=== PATIENT | female | born 1950 | race Caucasian/White ===

== ENCOUNTER → 2019-07-20 | Outpatient (REF) | payer MEDICARE ==
[2019-07-20 13:46] LABS: BASO % 0.3 % (0.0-1.0); EOS # 0.2 10^3/uL (0.0-0.50); EOS % 2.3 % (0.0-3.0); HEMATOCRIT 43.2 % (36.0-47.0); HEMOGLOBIN 14.2 g/dl (12.0-15.5); LYMPH # 1.4 10^3/uL (1.5-4.5); LYMPH % 21.7 % (24.0-44.0); MEAN CORPUSCULAR HEMOGLOBIN 29.3 pg (27.0-33.0); MEAN CORPUSCULAR HGB CONC 32.9 g/dl (32.0-36.5); MEAN CORPUSCULAR VOLUME 89.1 fl (80.0-96.0); MONO # 0.5 10^3/uL (0.0-0.8); NEUTROPHILS # 4.5 10^3/uL (1.8-7.7); NEUTROPHILS % 68.4 % (36.0-66.0); PLATELET COUNT, AUTOMATED 246 10^3/uL (150-450); RED BLOOD COUNT 4.85 10^6/uL (4.00-5.40); WHITE BLOOD COUNT 6.5 10^3/uL (4.0-10.0)
[2019-07-20 14:57] LABS: ALBUMIN 3.6 GM/DL (3.2-5.2); ALT/SGPT 28 U/L (12-78); BILIRUBIN,TOTAL 0.3 MG/DL (0.2-1.0); BLOOD UREA NITROGEN 16 MG/DL (7-18); CALCIUM LEVEL 9.2 MG/DL (8.8-10.2); CARBON DIOXIDE LEVEL 25 MEQ/L (21-32); CHLORIDE LEVEL 105 MEQ/L (98-107); CHOLESTEROL LEVEL 216 MG/DL (<200); CHOLESTEROL RISK RATIO 5.268 (<5); CREATININE FOR GFR 0.91 MG/DL (0.55-1.30); GLOMERULAR FILTRATION RATE > 60.0 (>45); GLUCOSE, FASTING 188 MG/DL (70-100); HDL CHOLESTEROL 41 MG/DL (>40); LDL CHOLESTEROL 127 MG/DL (<100); NON-HDL-C 175 MG/DL; POTASSIUM SERUM 4.4 MEQ/L (3.5-5.1); SODIUM LEVEL 139 MEQ/L (136-145); TOTAL PROTEIN 7.5 GM/DL (6.4-8.2); TRIGLYCERIDES LEVEL 238 MG/DL (<150)
== END ==
LOC: M SFHCADAM 10:36
PROVIDERS: ATTEND Physician Assistant Medical
DX: E66.01 Morbid (severe) obesity due to excess calories (principal); E78.2 Mixed hyperlipidemia; J30.2 Other seasonal allergic rhinitis
CPT/HCPCS: 80053; 80061; 84443; 85025; G0463

== ENCOUNTER → 2019-07-25 | Outpatient (CLI) | payer MEDICARE ==
[2019-07-25 17:35] LABS: HEMOGLOBIN A1c 8.5 %
== END ==
LOC: M ADAMS 13:19
PROVIDERS: ATTEND Physician Assistant Medical
DX: R73.9 Hyperglycemia, unspecified (principal)

== ENCOUNTER → 2019-10-12 | Outpatient (REF) | payer MEDICARE, OTHER ==
[2019-10-12 17:18] LABS: BASO % 0.4 % (0.0-1.0); EOS # 0.1 10^3/uL (0.0-0.5); EOS % 1.7 % (0.0-3.0); HEMOGLOBIN 13.9 g/dl (12.0-15.5); LYMPH # 1.1 10^3/uL (1.5-5.0); LYMPH % 14.2 % (24.0-44.0); MEAN CORPUSCULAR HEMOGLOBIN 28.7 pg (27.0-33.0); MEAN CORPUSCULAR HGB CONC 31.6 g/dl (32.0-36.5); MEAN CORPUSCULAR VOLUME 90.7 fl (80.0-96.0); MONO # 0.6 10^3/uL (0.0-0.8); MONO % 7.4 % (0.0-5.0); NEUTROPHILS # 5.7 10^3/uL (1.5-8.5); NEUTROPHILS % 75.9 % (36.0-66.0); PLATELET COUNT, AUTOMATED 250 10^3/uL (150-450); RED BLOOD COUNT 4.85 10^6/uL (4.00-5.40); WHITE BLOOD COUNT 7.5 10^3/uL (4.0-10.0)
[2019-10-12 18:40] LABS: ALBUMIN 3.7 GM/DL (3.2-5.2); BILIRUBIN,TOTAL 0.3 MG/DL (0.2-1.0); CALCIUM LEVEL 9.1 MG/DL (8.8-10.2); CREATININE FOR GFR 1.02 MG/DL (0.55-1.30); GLOMERULAR FILTRATION RATE 57.7 (>45); POTASSIUM SERUM 4.4 MEQ/L (3.5-5.1); TOTAL PROTEIN 7.9 GM/DL (6.4-8.2)
== END ==
LOC: M SFHCADAM 13:09
PROVIDERS: ATTEND Physician Assistant Medical
DX: R10.11 Right upper quadrant pain (principal)
CPT/HCPCS: 80053; 83690; 85025; G0463

== ENCOUNTER → 2019-10-14 | Outpatient (CLI) | payer MEDICARE, OTHER ==
--- NOTE | 2019-10-14 09:50 | REP ---
RIGHT UPPER QUADRANT ULTRASOUND: Real-time sonographic evaluation of the right upper quadrant performed. Gallbladder has been surgically removed. There is no intrahepatic or extrahepatic biliary dilatation, common bile duct measuring 3 mm. There is no ascites. Liver demonstrates diffuse heterogeneous increased echotexture compatible with diffuse fibrofatty infiltration. There is a cyst in the left lobe 2.2 x 1.2 x 2.3 cm. Multiple other smaller cysts are seen in the right lobe largest 1.1 x 1.1 x 1.3 cm. Hypoechoic mass in the left lobe measures 3.5 x 2.4 x 4.7 cm. Pancreas is not well seen due to overlying bowel gas, but is grossly unremarkable. Right kidney demonstrates no hydronephrosis with normal size 11.7 cm in length. The upper pole cyst measures 3.5 x 3.3 x 4.1 cm. Study is limited due to patient body habitus and bowel gas. IMPRESSION: Status post cholecystectomy. No biliary dilatation. There appears to be diffuse fibrofatty infiltration of the liver. There are multiple liver cysts. Mass like hypoechoic area in the left lobe measures 3.5 x 2.4 x 4.7 cm. Recommend evaluation with dedicated MRI of the liver with and without contrast. Electronically Signed by Harris Vegas MD 10/14/2019 03:47 P
== END ==
LOC: M RAD 07:21
PROVIDERS: ATTEND Physician Assistant Medical
DX: R10.11 Right upper quadrant pain (principal)

== ENCOUNTER → 2019-10-28 | Outpatient (REF) | payer MEDICARE, OTHER ==
[~2019-10-28] MED LIST: ALPR0.5T3 PO; HYDR-3713 PO; LORA1TAB12 PO; MORP-69 PO; ONDA8TAB7 PO; PROM25TA12 PO; ZANT150T40 PO; ZOFR4TAB16 PO
[2019-10-28 13:40] LABS: HEMOGLOBIN A1c 7.2 %
[2019-10-28 13:46] LABS: ALBUMIN 3.4 GM/DL (3.2-5.2); ALT/SGPT 22 U/L (12-78); BILIRUBIN,TOTAL 0.7 MG/DL (0.2-1.0); BLOOD UREA NITROGEN 10 MG/DL (7-18); CALCIUM LEVEL 9.5 MG/DL (8.8-10.2); CARBON DIOXIDE LEVEL 25 MEQ/L (21-32); CHLORIDE LEVEL 106 MEQ/L (98-107); CREATININE FOR GFR 0.97 MG/DL (0.55-1.30); GLOMERULAR FILTRATION RATE > 60.0 (>45); GLUCOSE, FASTING 186 MG/DL (70-100); POTASSIUM SERUM 4.4 MEQ/L (3.5-5.1); SODIUM LEVEL 141 MEQ/L (136-145); TOTAL PROTEIN 7.7 GM/DL (6.4-8.2)
== END ==
LOC: M SFHCADAM 10:45
PROVIDERS: ATTEND Physician Assistant Medical
DX: E11.65 Type 2 diabetes mellitus with hyperglycemia (principal)
CPT/HCPCS: 80053; 83036; G0463

== ENCOUNTER → 2019-10-29 | Outpatient (CLI) | payer MEDICARE, OTHER ==
[~2019-10-29] MED LIST changes: -ALPR0.5T3 PO; +GASTROGRAFIN SOLUTION 30ML (Q9963) As Ordered ONE; -HYDR-3713 PO; +ISOVUE-370 76% 100ML VIAL (Q9967) As Ordered ONE; -LORA1TAB12 PO; -MORP-69 PO; -ONDA8TAB7 PO; -PROM25TA12 PO; -ZANT150T40 PO; -ZOFR4TAB16 PO
--- NOTE | 2019-10-29 09:49 | REP ---
Clinical: Epigastric pain. Correlation: Ultrasound dated 10/14/2019. Technique: Axial contrast enhanced images from the lung bases to the pubic symphysis using oral (per protocol) and 100 ml Isovue 370 intravenous contrast material with coronal and sagittal re-formations. Findings: There is a heterogeneous somewhat hypodense mass involving the body of the pancreas with surrounding stranding and adjacent peripancreatic/mesenteric adenopathy along with multiple subtle hypodense liver lesions with surrounding enhancement which appear to measure up to approximately 3.7 cm in the lateral left lobe. These findings are highly suspicious for metastatic carcinoma of the pancreas. Spleen, bilateral adrenal glands, and kidneys are essentially normal. Incidental 4.4 cm low density lesion in the right kidney likely represents cyst. The enteric system is without obstruction or acute inflammatory process. There is evidence for prior ventral hernia repair. Pelvis demonstrates normal bladder and myomatous changes to the uterus. No ascites. No free air. Abdominal aorta is without aneurysm or dissection. Musculoskeletal structures demonstrate degenerative changes without focal abnormality. Lung bases demonstrate presumed chronic fibroatelectatic changes. Impression: 1. Findings related to the pancreas and liver as detailed above consistent with metastatic carcinoma of the pancreas unless proven otherwise. Electronically Signed by Nba Foley MD 10/29/2019 09:40 A
== END ==
LOC: M RAD 07:15
PROVIDERS: ATTEND Physician Assistant
DX: K86.9 Disease of pancreas, unspecified (principal); R10.13 Epigastric pain
CPT/HCPCS: 74177; Q9963; Q9967

== ENCOUNTER → 2019-11-16 | Outpatient (CLI) | payer MEDICARE, OTHER ==
[~2019-11-16] MED LIST changes: -GASTROGRAFIN SOLUTION 30ML (Q9963) As Ordered ONE; +HYDR-3713 PO; -ISOVUE-370 76% 100ML VIAL (Q9967) As Ordered ONE; +LIDOCAINE 1% MDV 20ML VIAL As Ordered ONE; +ZANT150T40 PO; +ZOFR4TAB16 PO
[2019-11-16 12:50] VITALS: BP 109/59
--- NOTE | 2019-11-19 12:34 | REP ---
Ultrasound-guided liver biopsy This procedure was performed by Diane Wells [facility], under the direct supervision of Dr. Vegas. The risks and benefits of the procedure were explained to the patient and informed consent was obtained both verbally and written. Directly prior to the start of the procedure, a formal timeout was done in the procedure room. The left lobe liver mass was localized using ultrasound guidance. The skin was prepped and draped in a sterile fashion. 12 ml of 1% lidocaine 10 mg/ml was used as a local anesthetic. Using ultrasound guidance a small skin laura was made and a 19/20 gauge coaxial needle biopsy system was inserted and advanced into the liver. 4 core biopsy samples were obtained and sent to the lab. The patient tolerated the procedure well and there were no immediate complications. After the appropriate monitored convalescence the patient was discharged home from the department. Reviewed by DOLORES Schmitz 11/16/2019 05:23 P Electronically Signed by Harris Vegas MD 11/19/2019 12:24 P
== END ==
LOC: M IRPRO 09:57
PROVIDERS: ATTEND Surgery
DX: C78.7 Secondary malignant neoplasm of liver and intrahepatic bile duct (principal); C25.1 Malignant neoplasm of body of pancreas

== ENCOUNTER 2019-11-28 16:32 | Inpatient (IN) | payer MEDICARE, OTHER ==
[~2019-11-28] VITALS: Ht 167.6 cm; Wt 97.4 kg
[~2019-11-28 16:32] MED LIST changes: -LIDOCAINE 1% MDV 20ML VIAL As Ordered ONE
[2019-11-28] MEDS ORDERED: NS 1,000 ML IV SCH ×2 (17:01→21:15)
[2019-11-28] MEDS ORDERED: MORPHINE 4 MG/ML 1ML VIAL/SYRINGE (J2270) IV ONE (17:15)
[2019-11-28] MEDS ORDERED: ONDANSETRON 4MG/2ML VIAL (J2405) IV ONE ×2 (17:15→21:15)
[2019-11-28 17:43] LABS: BASO % 0.4 % (0.0-1.0); EOS % 0.2 % (0.0-3.0); HEMATOCRIT 41.9 % (36.0-47.0); HEMOGLOBIN 13.8 g/dl (12.0-15.5); LYMPH # 0.9 10^3/uL (1.5-5.0); LYMPH % 7.8 % (24.0-44.0); MEAN CORPUSCULAR HEMOGLOBIN 28.4 pg (27.0-33.0); MEAN CORPUSCULAR HGB CONC 32.9 g/dl (32.0-36.5); MEAN CORPUSCULAR VOLUME 86.2 fl (80.0-96.0); MONO # 0.9 10^3/uL (0.0-0.8); MONO % 8.2 % (0.0-5.0); NEUTROPHILS # 9.2 10^3/uL (1.5-8.5); NEUTROPHILS % 83.1 % (36.0-66.0); PLATELET COUNT, AUTOMATED 287 10^3/uL (150-450); RED BLOOD COUNT 4.86 10^6/uL (4.00-5.40); WHITE BLOOD COUNT 11.1 10^3/uL (4.0-10.0)
[2019-11-28] MEDS ORDERED: PROM25TA12 PO (17:53)
[2019-11-28] MEDS ORDERED: MORP-69 PO (17:53)
[2019-11-28] MEDS ORDERED: ALPR0.5T3 PO (17:53)
[2019-11-28 18:02] LABS: ALBUMIN 3.2 GM/DL (3.2-5.2); ALT/SGPT 42 U/L (12-78); BILIRUBIN,DIRECT 0.3 MG/DL (0.0-0.2); BILIRUBIN,TOTAL 0.8 MG/DL (0.2-1.0); BLOOD UREA NITROGEN 13 MG/DL (7-18); CALCIUM LEVEL 9.2 MG/DL (8.8-10.2); CARBON DIOXIDE LEVEL 22 MEQ/L (21-32); CHLORIDE LEVEL 101 MEQ/L (98-107); CREATININE FOR GFR 0.95 MG/DL (0.55-1.30); GLOMERULAR FILTRATION RATE > 60.0 (>45); GLUCOSE, FASTING 120 MG/DL (70-100); LIPASE 281 U/L (73-393); POTASSIUM SERUM 3.7 MEQ/L (3.5-5.1); SODIUM LEVEL 137 MEQ/L (136-145); TOTAL PROTEIN 7.9 GM/DL (6.4-8.2)
[2019-11-28] MEDS ORDERED: ISOVUE-370 76% 100ML VIAL (Q9967) As Ordered ONE (18:16)
--- NOTE | 2019-11-28 19:59 | REPVR ---
PROCEDURE INFORMATION: Exam: CT Abdomen And Pelvis With Contrast Exam date and time: 11/28/2019 6:27 PM Age: 68 years old Clinical indication: Abdominal pain; Generalized; Additional info: Gen abd pain vomiting TECHNIQUE: Imaging protocol: Computed tomography of the abdomen and pelvis with intravenous contrast. Radiation optimization: All CT scans at this facility use at least one of these dose optimization techniques: automated exposure control; mA and/or kV adjustment per patient size (includes targeted exams where dose is matched to clinical indication); or iterative reconstruction. Contrast material: [id number]; Contrast volume: 100 ml; Contrast route: IV; COMPARISON: CT ABD/PEL W/IV ORAL CONTRAS 10/29/2019 9:28 AM FINDINGS: Lungs: Minimal linear atelectasis and/or scar in the lung bases. Liver: Generalized decreased attenuation and heterogeneity throughout the liver is similar to that seen on the prior examination. Multiple low density hepatic masses are less well-visualized, but likely unchanged in size when compared to the prior examination. No new hepatic mass or intrahepatic duct dilatation identified. Gallbladder and bile ducts: Status post cholecystectomy. Pancreas: Heterogeneous/low-density mass within the pancreas neck and body is not significantly changed in size when compared to the prior examination. Pancreatic tail atrophy and duct dilatation is unchanged. Peripancreatic fat stranding and peripancreatic lymphadenopathy is appears slightly more prominent. Encasement of the portosplenic confluence and a portion of the portal vein is present and similar to that seen on the prior exam. Spleen: Unremarkable. No splenomegaly. Adrenals: Normal. No mass. Kidneys and ureters: Right renal cyst, unchanged. Unremarkable left kidney. No renal stone or hydronephrosis. Stomach and bowel: Status post subtotal colectomy with ileocolic anastomosis, unchanged. Appendix: No evidence of appendicitis. Intraperitoneal space: Tiny volume of abdominal ascites, new. Vasculature: See Pancreas Finding. Lymph nodes: Pathologically enlarged retroperitoneal lymph nodes have increased in size slightly since the prior exam. Bladder: Unremarkable as visualized. Reproductive: Calcified uterine fibroid. No adnexal mass. Bones/joints: No acute fracture. Soft tissues: Unremarkable. IMPRESSION: 1. Heterogeneous pancreas mass consistent with pancreatic cancer with vascular encasement, similar to that seen on the prior exam. 2. Peripancreatic rudolph metastases, a few of which appear slightly more prominent in size. 3. Retroperitoneal metastases with mild increase in retroperitoneal lymphadenopathy. 4. Hepatic metastatic disease, similar in appearance to that seen on the prior exam. Electronically signed by: Romie Spain On 11/28/2019 19:58:50 PM
--- NOTE | 2019-11-28 20:48 | HPEPDOC ---
[facility] Medical History & Physical Date of Admission Nov 28, 2019 Date of Service: Nov 28, 2019 Primary Care Physician: MYA FENG PA-C Attending Physician: Chema Marin MD History and Physical TIME OF SERVICE: 9:50 PM CHIEF COMPLAINT:, Nausea, vomiting, pain HISTORY OF PRESENT ILLNESS: This is a 68-year-old female was recently diagnosed with pancreatic cancer with metastases to the liver; her follow-up appointment with her oncologist is this Saturday. She saw an oncologist in [place] who told her that the cancer is inoperable. Today she presents with complaints of intractable nausea and vomiting and has not been able to eat or drink. She is also complaining of uncontrollable diffuse abdominal pain and anxiety. REVIEW OF SYSTEMS: 12 point review of systems negative except as listed in HPI PAST MEDICAL/ SURGICAL HISTORY: She was diagnosed with diabetes in August and had abdominal pain; thereafter, she was found to have pancreatic cancer. Diverticulosis with recurrent diverticulitis status post partial colectomy. Morbid obesity. Dyslipidemia. History of Statin-induced myalgia SOCIAL HISTORY: Former smoker FAMILY HISTORY: Father had unspecified cerebral artery occlusion and CVA. Coronary artery disease Lung cancer Multiple sclerosis. Hypertension ALLERGIES: Please see below. HOME MEDICATIONS: Please see below. PHYSICAL EXAMINATION: VITAL SIGNS: Please see below. GEN: Obese/ well developed/ NAD INTEGUMENT: not flushed/ not jaundice / she has a large post laparotomy scar at the midabdomen HEENT: NCAT / lips acyanotic /mucus membranes moist and pink / sclera anicteric CVS: RRR/NMRG/ no lower extremity edema LUNGS: lungs are clear to auscultation bilaterally on room air ABDOMEN: obese / the abdomen is soft MSK/EXTREMITIES: range of motion intact in all 4 extremities NEURO: CN 2-12 are grossly intact / speech is not dysarthric PSYCH: alert and oriented to person place and time/ able to understand and follow all commands LABORATORY DATA: See below. IMAGING: CT of the abdomen and pelvis " IMPRESSION: 1. Heterogeneous pancreas mass consistent with pancreatic cancer with vascular encasement, similar to that seen on the prior exam. 2. Peripancreatic rudolph metastases, a few of which appear slightly more prominent in size. 3. Retroperitoneal metastases with mild increase in retroperitoneal lymphadenopathy. 4. Hepatic metastatic disease, similar in appearance to that seen on the prior exam. ASSESSMENT: Ms. Watkins is a 68 year old w a PMH of DM, newly diagnosed pancreatic cancer with metastases to the liver, diverticulosis, and morbid obesity who is admitted for management of cancer-related nausea, vomiting and abdominal pain. PLAN: 1. Metastatic pancreatic cancer-related nausea, vomiting and abdominal pain Transaminitis is likely due to the metastases to the liver The lipase is within normal limits Plan: Admit to medical floor/IV Zofran/IV fluids/switch from by mouth morphine to IV morphine when necessary/switch from alprazolam to lorazepam when necessary for anxiety/the daytime team may consider a pain management and palliative care consult / her follow-up appointment with her oncologist as scheduled on Saturday 2. Leukocytosis, likely reactive. She doesn't have any additional SIRS criteria. Plan: Monitor vitals 3. Type 2 diabetes Her A1c was 7.2 in October 2019 Plan: Follow-up Accu-Cheks every 6 hours/hypoglycemia protocol/sliding scale insulin 4. Obesity BMI is 36.4. This complicates care DVT PROPHYLAXIS: Lovenox DISPOSITION: Likely home after more than 2 midnight's stay Vital Signs Vital Signs Date Time Temp Pulse Resp B/P (MAP) Pulse Ox O2 Delivery O2 Flow Rate FiO2 11/28/19 17:41 16 11/28/19 17:31 11/28/19 16:33 96.5 80 100 Room Air Laboratory Data Labs 24H Laboratory Tests 2 11/28/19 17:23: Immature Granulocyte % (Auto) 0.3, Neutrophils (%) (Auto) 83.1H, Lymphocytes (%) (Auto) 7.8L, Monocytes (%) (Auto) 8.2H, Eosinophils (%) (Auto) 0.2, Basophils (%) (Auto) 0.4, Neutrophils # (Auto) 9.2H, Lymphocytes # (Auto) 0.9L, Monocytes # (Auto) 0.9H, Eosinophils # (Auto) 0.0, Basophils # (Auto) 0.0, Nucleated Red Blood Cells % (auto) 0.0, Anion Gap 14, Glomerular Filtration Rate > 60.0, Calcium Level 9.2, Total Bilirubin 0.8, Direct Bilirubin 0.3H, Aspartate Amino Transf (AST/SGOT) 66H, Alanine Aminotransferase (ALT/SGPT) 42, Alkaline Phosphatase 242H, Total Protein 7.9, Albumin 3.2, Albumin/Globulin Ratio 0.68L, Lipase 281 CBC/BMP Laboratory Tests 11/28/19 17:23 Home Medications Scheduled Morphine Sulfate (Morphine Sulfate ER) 15 Mg Tablet.er, 15 MG PO BID Scheduled PRN Alprazolam (Alprazolam) 0.5 Mg Tablet, 0.5 MG PO BID-TID PRN for ANXIETY Ondansetron HCl (Zofran) 4 Mg Tablet, 4 MG PO Q6-8H PRN for nausea/vomiting Promethazine HCl (Promethazine HCl) 25 Mg Tablet, 25 MG PO Q6H PRN for NAUSEA OR VOMITING Allergies Coded Allergies: No Known Allergies (Unverified , 11/28/19) A-FIB/CHADSVASC A-FIB History Current/History of A-Fib/PAF?: No Current PO Anticoag Therapy: No KRYSTAL GAN MD Nov 28, 2019 20:48
[2019-11-28] MEDS: RAMELTEON 8 MG TAB (ROZEREM) PO SCH (21:00)
[2019-11-28] MEDS: HumaLOG INSULIN (NovoLOG) PER UNIT SC SCH (21:00)
[2019-11-28] MEDS ORDERED: DEXTROSE 50% 50 ML SYRINGE IV PRN (21:15)
[2019-11-28] MEDS ORDERED: MOM 30ML SUSPENSION UDC PO PRN (21:15)
[2019-11-28] MEDS ORDERED: MAALOX 30 ML SUSP *UDC PO PRN (21:15)
[2019-11-28] MEDS ORDERED: GLUCAGON FOR INJ 1 MG VIAL (J1610) SC PRN (21:15)
[2019-11-28] MEDS ORDERED: GLUCOSE 4 GM CHEW TABLET PO PRN (21:15)
[2019-11-28] MEDS ORDERED: ONDANSETRON 4MG/2ML VIAL (J2405) IV PRN (21:15)
[2019-11-28] MEDS ORDERED: LORazepam 2 MG/ML VIAL (J2060) IV PRN (22:00)
[2019-11-29] VITALS (11 sets, daily range): BP systolic 130–136; BP diastolic 68–74; O2SAT 93–97
[2019-11-29 07:13] LABS: HEMATOCRIT 41.6 % (36.0-47.0); HEMOGLOBIN 13.2 g/dl (12.0-15.5); MEAN CORPUSCULAR HEMOGLOBIN 28.1 pg (27.0-33.0); MEAN CORPUSCULAR HGB CONC 31.7 g/dl (32.0-36.5); MEAN CORPUSCULAR VOLUME 88.7 fl (80.0-96.0); PLATELET COUNT, AUTOMATED 269 10^3/uL (150-450); RED BLOOD COUNT 4.69 10^6/uL (4.00-5.40); WHITE BLOOD COUNT 10.1 10^3/uL (4.0-10.0)
[2019-11-29] MEDS: HumaLOG INSULIN (NovoLOG) PER UNIT SC SCH ×4 (07:30→20:43)
[2019-11-29 07:37] LABS: ALT/SGPT 52 U/L (12-78); BILIRUBIN,TOTAL 0.7 MG/DL (0.2-1.0); BLOOD UREA NITROGEN 14 MG/DL (7-18); CARBON DIOXIDE LEVEL 23 MEQ/L (21-32); CHLORIDE LEVEL 105 MEQ/L (98-107); CREATININE FOR GFR 0.94 MG/DL (0.55-1.30); GLOMERULAR FILTRATION RATE > 60.0 (>45); GLUCOSE, FASTING 121 MG/DL (70-100); MAGNESIUM LEVEL 2.2 MG/DL (1.8-2.4); POTASSIUM SERUM 3.5 MEQ/L (3.5-5.1); SODIUM LEVEL 140 MEQ/L (136-145); TOTAL PROTEIN 7.3 GM/DL (6.4-8.2)
[2019-11-29] MEDS: ACETAMINOPHEN TAB 650MG DOSE (2X325MG) PO PRN ×2 (08:10→17:39)
[2019-11-29] MEDS: MORPHINE 4 MG/ML 1ML VIAL/SYRINGE (J2270) IV PRN ×4 (08:21→20:51)
[2019-11-29] MEDS ORDERED: ALPRAZolam 0.5 MG TAB PO PRN (08:45)
[2019-11-29] MEDS ORDERED: MIRALAX *UNIT DOSE* 17GM PACKET PO PRN (08:45)
[2019-11-29] MEDS ORDERED: SENOKOT S TAB PO PRN (08:45)
[2019-11-29] MEDS ORDERED: PROMETHAZINE INJ 25 MG/ML VIAL (J2550) IV PRN (11:30)
[2019-11-29] MEDS: KCL 20MEQ IN 0.45NS 1000ML 1,000 ML IV SCH (12:10)
--- NOTE | 2019-11-29 12:30 | IPN ---
DATE: 11/29/2018 Latonia was seen in an interim hospital bed in the emergency room, admitted with intractable pain. She was recently diagnosed with unresectable metastatic pancreatic adenocarcinoma with positive pathology of liver metastasis. On 11/16/[address] Conrad Hi in [place]. She was declared a nonsurgical candidate. She is seeing Dr. Erica Yousif on 12/01/2019 for medical oncology evaluation. She was admitted with intractable pain. She had escalating doses of oral pain medication as an outpatient but has break-through pain and ended up in the emergency room. She has a lot of anxiety about her diagnosis and prognosis and notes that she used Xanax many years ago when she had a severe medical problem and it helped her significantly with her anxiety. However, her nausea and vomiting she attributes to anxiety and feels of we would to address this, that it would help palliate many of her symptoms. PHYSICAL EXAMINATION: Afebrile, blood pressure 117/79. General appearance: Alert, conversant in no distress. She is quite medically knowledgeable. 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 Lungs clear. Heart regular rhythm. Abdomen soft. Diffusely mildly tender. No peripheral edema. Moves arms and legs with equal strength. LABS: Bilirubin is normal. Alkaline phosphatase mildly elevated. Albumin low at 3. White count unremarkable. IMPRESSION: Intractable abdominal pain secondary to metastatic pancreatic cancer. PLAN: 1. She has IV morphine ordered for pain and that seems to be helping. She needs something for anxiety. She currently has Ativan ordered, which I have discontinued in favor of Xanax 1 mg every 8 hours as needed. She also has Zofran available. I have a text out to Dr. Lyon from interventional radiology. I wonder whether the patient might be an appropriate candidate for interventional procedure such as a celiac neurolysis or other interventional procedure. Patient is realistic about her condition but would like to try to get discharged in time to see Dr. Yousif. If that does not happen, she would like Dr. Yousif to see her as an inpatient. They do not want that appointment delayed. 2. Diabetes type 2: She is on a sliding scale of insulin coverage. 3. Protein calorie malnutrition: She has obesity but she does have a low albumin. She has started to take oral diet better with better control of her pain. 4. Mild hypokalemia: Change her IV fluid to half normal saline to supplemental potassium.
[2019-11-29] MEDS ORDERED: SLF 3 ML SYR IV PRN (13:15)
[2019-11-29] MEDS: DOCUSATE SODIUM 100 MG CAP PO SCH ×2 (13:29→20:51)
[2019-11-29] MEDS: ENOXAPARIN 40 MG/0.4 ML SYRINGE (J1650) SC SCH (13:32)
[2019-11-29] MEDS: SLF 3 ML SYR IV SCH ×2 (13:32→20:51)
[2019-11-29] MEDS: RAMELTEON 8 MG TAB (ROZEREM) PO SCH (20:51)
[2019-11-30] VITALS (22 sets, daily range): BP systolic 98–148; BP diastolic 60–82; O2SAT 90–97
[2019-11-30] MEDS: KCL 20MEQ IN 0.45NS 1000ML 1,000 ML IV SCH (01:12)
[2019-11-30] MEDS: MORPHINE 4 MG/ML 1ML VIAL/SYRINGE (J2270) IV PRN ×4 (02:52→16:28)
[2019-11-30] MEDS: SLF 3 ML SYR IV SCH ×3 (05:22→21:15)
[2019-11-30 05:47] LABS: HEMATOCRIT 41.2 % (36.0-47.0); HEMOGLOBIN 12.5 g/dl (12.0-15.5); MEAN CORPUSCULAR HGB CONC 30.3 g/dl (32.0-36.5); MEAN CORPUSCULAR VOLUME 92.4 fl (80.0-96.0); PLATELET COUNT, AUTOMATED 203 10^3/uL (150-450); RED BLOOD COUNT 4.46 10^6/uL (4.00-5.40); WHITE BLOOD COUNT 7.5 10^3/uL (4.0-10.0)
[2019-11-30 06:11] LABS: ALBUMIN 2.7 GM/DL (3.2-5.2); ALT/SGPT 99 U/L (12-78); BILIRUBIN,TOTAL 0.9 MG/DL (0.2-1.0); BLOOD UREA NITROGEN 13 MG/DL (7-18); CARBON DIOXIDE LEVEL 24 MEQ/L (21-32); CHLORIDE LEVEL 106 MEQ/L (98-107); CREATININE FOR GFR 0.86 MG/DL (0.55-1.30); GLOMERULAR FILTRATION RATE > 60.0 (>45); GLUCOSE, FASTING 125 MG/DL (70-100); POTASSIUM SERUM 3.5 MEQ/L (3.5-5.1); SODIUM LEVEL 139 MEQ/L (136-145); TOTAL PROTEIN 7.2 GM/DL (6.4-8.2)
[2019-11-30] MEDS: HumaLOG INSULIN (NovoLOG) PER UNIT SC SCH ×4 (07:30→21:00)
[2019-11-30] MEDS: DOCUSATE SODIUM 100 MG CAP PO SCH (07:58)
[2019-11-30] MEDS: ENOXAPARIN 40 MG/0.4 ML SYRINGE (J1650) SC SCH (07:59)
[2019-11-30] MEDS ORDERED: BUPIVACAINE HCL 0.5% 30 ML VIAL As Ordered ONE (09:03)
[2019-11-30] MEDS ORDERED: MIDAZOLAM INJ 2 MG/2 ML VIAL (J2250) As Ordered ONE (09:05)
[2019-11-30] MEDS ORDERED: diphenhydrAMINE INJ 50MG/ML VIAL (J1200) As Ordered ONE (09:05)
[2019-11-30] MEDS ORDERED: fentaNYL 100 MCG/2 ML INJECTION (J3010) As Ordered ONE (09:05)
[2019-11-30] MEDS: LORazepam 1 MG TAB PO PRN ×3 (09:16→21:06)
--- NOTE | 2019-11-30 09:16 | IPNPDOC ---
Subjective Date Seen The patient was seen on 11/30/19. Subjective Chief Complaint/HPI cancer related pain Events since last encounter Planned eval and intervention with Dr. Lyon at Inter[facility] for pain. Patient notes worsening pain since missing morphine dosing last evening. Admits to nausea and anxiety Constitutional: Denies: Chills, Fever, Night Sweats ENT: Denies: Head Aches, Ear Pain, Dysphagia Pulmonary: Denies: Dyspnea, Cough Cardiovascular: Denies: Chest Pain, Palpitations, Orthopnea, Paroxysmal Noc. Dyspnea, Lt Headedness Gastrointestinal: Reports: Nausea, Vomiting, Abdominal Pain Psych: Reports: Anxiety; Denies: Thoughts of Self Harm, Anger, Thoughts of Harming Other Objective Physical Examination General Exam: Positive: Alert, Mild Distress Chest Exam: Positive: Clear to auscultation, Normal air movement Heart Exam: Positive: Rate Normal, Regular Rhythm, Normal S1, Normal S2; Negative: Murmurs, Rubs Telemetry: Positive: No significant arrhythmia Abdomen Exam: Positive: Normal bowel sounds, Soft, Tenderness; Negative: Hepatospenomegaly Extremity Exam: Negative: Edema Psych Exam: Positive: Anxiety, Oriented x 3 Assessment /Plan Problems (1) Nausea & vomiting Problem Text: Zofran and Lorazepam prn. (2) Cancer related pain Status: Acute Problem Text: 11/30 given recurrent severe pain added back MSER 15 BID (HD) to MSO4 3 IV q3H prn 11/30 1200 sp celiac axis alcohol block . (3) Pancreatic cancer Status: Acute (4) Diabetes mellitus Status: Chronic Response to Treatment: Stable Plan/VTE VTE Prophylaxis Ordered?: Yes Plan Diet: Continue Current Anticipated Discharge: Home VS, I&O, 24H, Maia Vital Signs/I&O Vital Signs Date Time Temp Pulse Resp B/P (MAP) Pulse Ox O2 Delivery O2 Flow Rate FiO2 11/30/19 08:08 20 Room Air 11/30/19 08:00 98.6 72 148/82 (104) 97 I&O- Last 24 Hours up to 6 AM 11/30/19 06:00 Intake Total 680 ml Output Total 400 ml Balance 280 ml Laboratory Data 24H LABS Laboratory Tests 2 11/29/19 13:44: Bedside Glucose (Misc Panel) 106 11/29/19 17:29: Bedside Glucose (Misc Panel) 127H 11/29/19 20:41: Bedside Glucose (Misc Panel) 172H 11/30/19 05:33: Nucleated Red Blood Cells % (auto) 0.0, Anion Gap 9, Glomerular Filtration Rate > 60.0, Calcium Level 9.0, Total Bilirubin 0.9, Aspartate Amino Transf (AST/SGOT) 160H, Alanine Aminotransferase (ALT/SGPT) 99H, Alkaline Phosphatase 257H, Total Protein 7.2, Albumin 2.7L, Albumin/Globulin Ratio 0.60L CBC/BMP Laboratory Tests 11/30/19 05:33 Ana Bowman Nov 30, 2019 09:16 Giorgio De La Cruz M.D. Nov 30, 2019 17:24
[2019-11-30] MEDS ORDERED: ETHANOL ALCOHOL 98% INJ 5ML (DEHYDRATED) XX ONE (10:00)
--- NOTE | 2019-11-30 10:17 | IRINPTCON ---
[facility] IR Inpatient Consultation IR Inpatient Consultation DATE: Nov 30, 2019 REASON FOR CONSULTATION/CHIEF COMPLAINT: Intractable pain from pancreatic cancer. HISTORY OF PRESENT ILLNESS: 68-year-old female diagnosed with pancreatic cancer with liver metastases in August this past year. Diagnosis made on liver biopsy. Patient has had pain in the right upper quadrant radiating to the back which requires large doses of scheduled morphine. Patient presented to the ER with intractable pain and required inpatient admission for IV pain meds. No fevers or chills. Also has extensive history of colon surgery 10 years ago with colostomy and colostomy reversal and hernia repair. This is associated with different kind of pain which is more like a stretching sensation upon standing, as the lower abdomen hangs down. Intermittent diarrhea maximum 2 times a day. No issues with low blood pressure. No prior celiac block. ALLERGIES: Please see below. HOME MEDICATIONS: Please see below. PAST MEDICAL HISTORY: 1. Bowel obstruction 2. Pancreatic cancer 3. Diabetes PAST SURGICAL HISTORY: 1. Abdominal hernia repair 2. Colon surgery. 3. Cholecystectomy FAMILY HISTORY: Noncontributory. SOCIAL HISTORY: Ex-smoker stopped 10 years ago. No alcohol or drugs. REVIEW OF SYSTEMS: Otherwise negative. PHYSICAL EXAMINATION: VITAL SIGNS: Please see below. GENERAL APPEARANCE: Mildly uncomfortable at rest. HEENT: No scleral icterus. RESPIRATORY: Symmetric breath sounds. CARDIOVASCULAR: Normal rate. ABDOMEN: Extensive anterior abdominal wall surgical scars. Abdomen mildly distended. No rebound or guarding. Tender epigastric region. EXTREMITIES: No significant edema. NEUROLOGICAL: Alert and oriented. PSYCHIATRIC: Appropriate to circumstance. LABORATORY DATA: 11/30/2019 hemoglobin 12.5 hematocrit 41.2 WBC 7.5 platelets 203 sodium 139 potassium 3.5 BUN 13 creatinine 0.86 total bilirubin 0.9 AST 160 ALT 19 9 ALP 257 Imaging: I personally reviewed the CT abdomen pelvis from November 2019. There is a pancreatic mass with distal pancreatic duct dilation. There are metastases in the liver. There is retroperitoneal adenopathy. The celiac plexus is free of tumor and accessible. ASSESSMENT/PLAN: 68-year-old female with metastatic pancreatic cancer and intractable pain. I agree she is a candidate for celiac plexus block. We'll schedule her for this procedure today, to be done under moderate sedation and under CT. I spent 30 minutes in consultation with the patient. Thank you for this referral. Allergies Coded Allergies: No Known Allergies (Unverified , 11/28/19) Home Medications Scheduled Morphine Sulfate (Morphine Sulfate ER), 15 MG PO BID, (Reported) Scheduled PRN Alprazolam (Alprazolam), 0.5 MG PO BID-TID PRN for ANXIETY, (Reported) Ondansetron HCl (Zofran), 4 MG PO Q6-8H PRN for nausea/vomiting, (Reported) Promethazine HCl (Promethazine HCl), 25 MG PO Q6H PRN for NAUSEA OR VOMITING, (Reported) Discontinued Medications Hydrocodone/Acetaminophen (Hydrocodone-Acetamin 5-325 mg), 1 TAB PO Q6H PRN for PAIN, (Reported) Discontinued Reason: Pt states not taking Ranitidine Hcl (Zantac), 1 TAB PO BID, (Reported) Discontinued Reason: Pt states not taking VS, I&O, 24H, Fishbone Vital Signs/I&O Vital Signs Date Time Temp Pulse Resp B/P (MAP) Pulse Ox O2 Delivery O2 Flow Rate FiO2 11/30/19 09:00 97 Room Air 11/30/19 08:08 20 11/30/19 08:00 98.6 72 148/82 (104) I&O- Last 24 Hours up to 6 AM 11/30/19 06:00 Intake Total 680 ml Output Total 400 ml Balance 280 ml Laboratory Data 24H LABS Laboratory Tests 2 11/29/19 13:44: Bedside Glucose (Misc Panel) 106 11/29/19 17:29: Bedside Glucose (Misc Panel) 127H 11/29/19 20:41: Bedside Glucose (Misc Panel) 172H 11/30/19 05:33: Nucleated Red Blood Cells % (auto) 0.0, Anion Gap 9, Glomerular Filtration Rate > 60.0, Calcium Level 9.0, Total Bilirubin 0.9, Aspartate Amino Transf (AST/SGOT) 160H, Alanine Aminotransferase (ALT/SGPT) 99H, Alkaline Phosphatase 257H, Total Protein 7.2, Albumin 2.7L, Albumin/Globulin Ratio 0.60L CBC/BMP Laboratory Tests 11/30/19 05:33 SARA HUSAIN MD Nov 30, 2019 10:17
--- NOTE | 2019-11-30 15:13 | IRMSE ---
[facility] IR Moderate Sedation Eval. Date and Time Date: Nov 30, 2019 Time: 11:01 ASA Classification ASA Classification: II-Mild systemic disease Mallampati Score: II NPO: Yes Obstructive Sleep Apnea: No Interval Plan: moderate sedation SARA HUSAIN MD Nov 30, 2019 15:13
--- NOTE | 2019-11-30 15:14 | POST-OPPD ---
Postoperative Procedure Note Date Of Procedure: Nov 30, 2019 Time Of Procedure: 14:35 PREOPERATIVE DIAGNOSIS: pancreatic ca POSTOPERATIVE DIAGNOSIS: pancreatic ca FINDINGS: pancreatic ca PROCEDURE: celiac block with alcohol SURGEON: yuli ANESTHESIA: mod sed ESTIMATED BLOOD LOSS: < 5 ml COMPLICATIONS: none POSTOPERATIVE CONDITION: stable SARA HUSAIN MD Nov 30, 2019 15:14
[2019-11-30] MEDS: SENOKOT S TAB PO SCH (21:00)
[2019-11-30] MEDS: RAMELTEON 8 MG TAB (ROZEREM) PO SCH (21:06)
[2019-11-30] MEDS: MORPHINE 15 MG SA TAB PO SCH (21:06)
[2019-12-01] VITALS (10 sets, daily range): BP systolic 96–120; BP diastolic 54–78; O2SAT 91–97
[2019-12-01 05:21] LABS: HEMATOCRIT 37.9 % (36.0-47.0); HEMOGLOBIN 12.1 g/dl (12.0-15.5); MEAN CORPUSCULAR HEMOGLOBIN 28.6 pg (27.0-33.0); MEAN CORPUSCULAR HGB CONC 31.9 g/dl (32.0-36.5); MEAN CORPUSCULAR VOLUME 89.6 fl (80.0-96.0); PLATELET COUNT, AUTOMATED 226 10^3/uL (150-450); RED BLOOD COUNT 4.23 10^6/uL (4.00-5.40); WHITE BLOOD COUNT 8.7 10^3/uL (4.0-10.0)
[2019-12-01 06:00] LABS: ALBUMIN 2.6 GM/DL (3.2-5.2); ALT/SGPT 260 U/L (12-78); BILIRUBIN,TOTAL 1.8 MG/DL (0.2-1.0); BLOOD UREA NITROGEN 10 MG/DL (7-18); CALCIUM LEVEL 8.3 MG/DL (8.8-10.2); CARBON DIOXIDE LEVEL 25 MEQ/L (21-32); CHLORIDE LEVEL 104 MEQ/L (98-107); CREATININE FOR GFR 0.82 MG/DL (0.55-1.30); GLOMERULAR FILTRATION RATE > 60.0 (>45); GLUCOSE, FASTING 119 MG/DL (70-100); POTASSIUM SERUM 3.6 MEQ/L (3.5-5.1); SODIUM LEVEL 137 MEQ/L (136-145); TOTAL PROTEIN 7.1 GM/DL (6.4-8.2)
[2019-12-01] MEDS: ACETAMINOPHEN TAB 650MG DOSE (2X325MG) PO PRN ×2 (06:34→15:34)
[2019-12-01] MEDS: SLF 3 ML SYR IV SCH ×3 (06:57→22:00)
[2019-12-01] MEDS: HumaLOG INSULIN (NovoLOG) PER UNIT SC SCH ×4 (07:25→20:47)
--- NOTE | 2019-12-01 08:49 | REP ---
IR CT guided celiac block. IR CT guided celiac neurolysis. IR moderate sedation. Clinical information: Pancreatic cancer. Refractory pain. Physician: Dr. Lyon. Procedure: The patient was advised of the benefits, risks and alternatives of the procedure and informed consent was obtained. The time-out was performed with verification of the patient's name, MRN, site of procedure and type of procedure to be performed. The patient was positioned in the prone position on the table. The site was prepped and draped in the usual sterile fashion. Moderate sedation was performed by the physician including the presence of an independent trained observer who assisted in monitoring the patient's level of consciousness and physiologic status. Following the administration of Fentanyl and Versed, the physician spent 60 minutes of continuous face to face time with the patient. Preliminary CT of the abdomen demonstrates the celiac and superior mesenteric axis. No significant tumor infiltration in this region. The anticipated puncture site was anesthetized with lidocaine. A 21 G Chiba needle was inserted into the left celiac plexus , under intermittent CT guidance. Contrast was injected through the needle. Follow-up CT through the area demonstrates appropriate layering of contrast in the region of the left celiac ganglion and diffusion to the contralateral celiac ganglion. No infiltration of any organs or vascular structures. 10 ml of 0.5% preservative-free bupivacaine was instilled through the needle. This was followed by 20 ml of absolute alcohol injected into the celiac ganglion. A follow-up CT through the area demonstrates distribution of alcohol. No significant hematoma. The needle was removed and a sterile dressing was applied to the site. The patient tolerated the procedure well and was returned to the PRU in stable condition. EBL: < 5 ml. Complications: None. Conclusion: 1. CT demonstrates no significant tumor infiltration of the celiac plexus. 2. Successful CT -guided celiac neurolysis. Patient to follow up in IR clinic in 6 months. Thank you for this referral. Electronically Signed by Nelli Lyon MD 12/01/2019 08:47 A
[2019-12-01] MEDS ORDERED: LORA1TAB12 PO (08:52)
[2019-12-01] MEDS: ENOXAPARIN 40 MG/0.4 ML SYRINGE (J1650) SC SCH (08:56)
[2019-12-01] MEDS: SENOKOT S TAB PO SCH ×2 (08:56→20:42)
[2019-12-01] MEDS: MORPHINE 15 MG SA TAB PO SCH ×2 (08:59→20:43)
[2019-12-01] MEDS: LORazepam 1 MG TAB PO PRN ×2 (09:33→20:42)
--- NOTE | 2019-12-01 10:23 | IPNPDOC ---
Subjective Date Seen The patient was seen on 12/01/19. Subjective Chief Complaint/HPI pancreatic ca Events since last encounter Patient with vomiting last evening and this am. Transitioned to clear liquids. Will see oncology today. s/p celiac plexus block yesterday under conscious sedation with Dr. Lyon. Notes significant improvement in her pain. Constitutional: Denies: Chills, Fever, Night Sweats Pulmonary: Denies: Dyspnea, Cough Cardiovascular: Denies: Chest Pain, Palpitations, Orthopnea, Paroxysmal Noc. Dyspnea, Lt Headedness Gastrointestinal: Reports: Nausea, Vomiting, Abdominal Pain Psych: Reports: Mood Normal; Denies: Depression, Memory Issues Objective Physical Examination General Exam: Positive: Alert, Cooperative, No Acute Distress Chest Exam: Positive: Clear to auscultation, Normal air movement Heart Exam: Positive: Rate Normal, Regular Rhythm, Normal S1, Normal S2; Negative: Murmurs, Rubs Telemetry: Positive: No significant arrhythmia Abdomen Exam: Positive: Normal bowel sounds, Soft, Tenderness (mild to upper abdomen); Negative: Hepatospenomegaly Extremity Exam: Negative: Edema Psych Exam: Positive: Anxiety, Oriented x 3 Assessment /Plan Problems (1) Nausea & vomiting Problem Text: Zofran and Lorazepam prn. Clear liquids and IVF started. eval abdominal film today. (2) Cancer related pain Status: Acute Problem Text: 11/30 given recurrent severe pain added back MSER 15 BID (HD) to MSO4 3 IV q3H prn 11/30 1200 sp celiac axis alcohol block . (3) Pancreatic cancer Status: Acute Problem Text: has mets to liver. Oncology consult to be completed today. + mets to liver and LFTs are climbing. Palliative care consult placed. (4) Diabetes mellitus Status: Chronic Response to Treatment: Stable Plan/VTE VTE Prophylaxis Ordered?: Yes Plan Diet: Continue Current Anticipated Discharge: Home VS, I&O, 24H, Fishbone Vital Signs/I&O Vital Signs Date Time Temp Pulse Resp B/P (MAP) Pulse Ox O2 Delivery O2 Flow Rate FiO2 12/01/19 08:59 20 Room Air 12/01/19 08:00 97 12/01/19 08:00 97.1 66 102/54 (70) 2.0 I&O- Last 24 Hours up to 6 AM 12/01/19 06:00 Intake Total 120 ml Output Total 250 ml Balance -130 ml Laboratory Data 24H LABS Laboratory Tests 2 11/30/19 16:22: Bedside Glucose (Misc Panel) 125H 11/30/19 21:13: Bedside Glucose (Misc Panel) 141H 12/01/19 04:49: Nucleated Red Blood Cells % (auto) 0.0, Anion Gap 8, Glomerular Filtration Rate > 60.0, Calcium Level 8.3L, Total Bilirubin 1.8#H, Aspartate Amino Transf (AST/SGOT) 330H, Alanine Aminotransferase (ALT/SGPT) 260H, Alkaline Phosphatase 278H, Total Protein 7.1, Albumin 2.6L, Albumin/Globulin Ratio 0.58L CBC/BMP Laboratory Tests 12/01/19 04:49 Ana Bowman [employer] Dec 01, 2019 10:23
[2019-12-01] MEDS: NS 1,000 ML IV SCH (11:04)
--- NOTE | 2019-12-01 11:08 | REP ---
Abdomen series: Five views. History: Vomiting. Findings: Upright chest radiograph shows no evidence of infiltrate or free subdiaphragmatic air. Heart is not enlarged. There is mild pleuroparenchymal fibrosis in the left lateral pleural angle region. There are degenerative changes in the thoracic spine. Supine views of the abdomen demonstrate a unremarkable bowel gas pattern. There are scattered surgical clips in the abdomen and left inguinal clips are seen. There is a 2.1 cm calcification in the right pelvis consistent with uterine fibroid calcification. Psoas margins are symmetric. Flank stripes are intact. No mass or organomegaly is seen. Bilateral hip osteoarthritis is seen left more so than right. Impression: Uterine calcification consistent with fibroid. Scattered surgical clips. Unremarkable bowel gas pattern. Electronically Signed by Addison Aldana MD 12/01/2019 01:09 P
[2019-12-01] MEDS: RAMELTEON 8 MG TAB (ROZEREM) PO SCH (20:42)
[2019-12-02] MEDS: NS 1,000 ML IV SCH (00:19)
[2019-12-02] MEDS: MORPHINE 4 MG/ML 1ML VIAL/SYRINGE (J2270) IV PRN (00:19)
[2019-12-02] MEDS: SLF 3 ML SYR IV SCH (05:42)
[2019-12-02] MEDS: LORazepam 1 MG TAB PO PRN ×2 (05:42→09:30)
[2019-12-02] MEDS: ACETAMINOPHEN TAB 650MG DOSE (2X325MG) PO PRN (05:58)
[2019-12-02 06:00] VITALS: BP 131/61
[2019-12-02 06:43] LABS: HEMATOCRIT 39.4 % (36.0-47.0); HEMOGLOBIN 12.5 g/dl (12.0-15.5); MEAN CORPUSCULAR HEMOGLOBIN 28.4 pg (27.0-33.0); MEAN CORPUSCULAR HGB CONC 31.7 g/dl (32.0-36.5); MEAN CORPUSCULAR VOLUME 89.5 fl (80.0-96.0); PLATELET COUNT, AUTOMATED 227 10^3/uL (150-450); WHITE BLOOD COUNT 8.6 10^3/uL (4.0-10.0)
[2019-12-02 07:11] LABS: ALBUMIN 2.6 GM/DL (3.2-5.2); ALT/SGPT 334 U/L (12-78); BILIRUBIN,TOTAL 3.4 MG/DL (0.2-1.0); BLOOD UREA NITROGEN 9 MG/DL (7-18); CALCIUM LEVEL 8.9 MG/DL (8.8-10.2); CARBON DIOXIDE LEVEL 22 MEQ/L (21-32); CHLORIDE LEVEL 106 MEQ/L (98-107); CREATININE FOR GFR 0.84 MG/DL (0.55-1.30); GLOMERULAR FILTRATION RATE > 60.0 (>45); GLUCOSE, FASTING 126 MG/DL (70-100); POTASSIUM SERUM 3.5 MEQ/L (3.5-5.1); SODIUM LEVEL 138 MEQ/L (136-145); TOTAL PROTEIN 7.2 GM/DL (6.4-8.2)
[2019-12-02] MEDS: HumaLOG INSULIN (NovoLOG) PER UNIT SC SCH (07:30)
[2019-12-02] MEDS: MORPHINE 15 MG SA TAB PO SCH (08:29)
[2019-12-02] MEDS: SENOKOT S TAB PO SCH (08:29)
[2019-12-02] MEDS: ENOXAPARIN 40 MG/0.4 ML SYRINGE (J1650) SC SCH (08:29)
[2019-12-02] MEDS ORDERED: ONDA8TAB7 PO (13:21)
--- NOTE | 2019-12-02 17:48 | DSES ---
DATE OF ADMISSION: 11/28/2019 DATE OF DISCHARGE: 12/02/2019 PRIMARY CARE PROVIDER: ROSY Leiva ATTENDING PHYSICIAN: Dr. Chema Marin HISTORY OF PRESENT ILLNESS: This is a 68-year-old female with a newly diagnosed pancreatic cancer with metastasis to the liver who presented to [facility] Emergency Department (ED) for uncontrollable abdominal pain, anxiety and nausea with vomiting. The patient was subsequently admitted to family medicine service. HOSPITAL COURSE: The patient was placed on antiemetics as well as lorazepam sublingual with improvement of her anxiety as well as her nausea. She was evaluated by the nurse navigator via the oncology office and the patient's appointment has been moved to today so that she is able to followup with her oncologist regarding potential treatment. PROCEDURES: The patient is status post celiac plexus block with Dr. Nelli Lyon with significant improvement of her abdominal pain. IMAGING: CT abdomen and pelvis which proved positive for heterogenous pancreatic mass consistent with cancer with vascular encasement, unchanged compared to prior examination. Also noted to have parapancreatic rudolph metastases, of which a few appear slightly more prominent. Noted retroperitoneal metastases with mild increase in retroperitoneal lymphadenopathy and hepatic metastatic disease. On physical examination today, vital signs are stable. She is afebrile. The patient is noted to have some worsening liver function tests (LFTs) today, however, is tolerating her diet and is insistent on being discharged so that she can attend her oncology appointment. She will need close followup of her LFTs on followup with her primary care provider (PCP). PHYSICAL EXAMINATION: CARDIOVASCULAR: Heart rate and rhythm are regular. PULMONARY: Lungs are clear. ABDOMEN: Soft with no tenderness. ASSESSMENT/DISCHARGE DIAGNOSES: 1. Pancreatic cancer with metastasis to the retroperitoneal nodes as well as the liver. 2. Intractable nausea with vomiting. 3. Type 2 diabetes. PLAN: The patient will go home on a diet as tolerated. MEDICATIONS: Are as follow: - lorazepam 0.5 mg by mouth every four hours as needed for anxiety and agitation - morphine 15 mg by mouth twice a day - Zofran 4 mg by mouth every 6-8 hours as needed for nausea and vomiting - promethazine 25 mg by mouth every six hours as needed for nausea or vomiting The patient is discharged in stable condition with potential for readmission and acute relapse given her liver function tests (LFTs) and recent nausea and vomiting. The patient and family are willing to assume risk in order to be able to attend the oncology appointment. She will followup with her primary care provider with close followup.
[2019-12-04] MEDS ORDERED: ZYPR10TA PO (08:33)
== END 2019-12-02 11:40 | disposition home or self-care (01) | DRG 948 ==
LOC: M ED 16:32 → M ED INP 20:42 → ENRESERV 11-29 11:51 → M PCU 11-29 12:37 → M MS5PR 12-01 14:02
PROVIDERS: ADMIT Internal Medicine; ATTEND Family Medicine
PROC: 3E0T3BZ Introduction of Anesthetic Agent into Peripheral Nerves and Plexi, Percutaneous Approach (ICD-10-PCS; principal; 2019-11-30 15:00)
DX: G89.3 Neoplasm related pain (acute) (chronic) (principal); C25.9 Malignant neoplasm of pancreas, unspecified; C78.7 Secondary malignant neoplasm of liver and intrahepatic bile duct; E46 Unspecified protein-calorie malnutrition; E11.9 Type 2 diabetes mellitus without complications; Z87.891 Personal history of nicotine dependence; Z90.49 Acquired absence of other specified parts of digestive tract; E66.9 Obesity, unspecified; Z68.34 Body mass index [BMI] 34.0-34.9, adult; E78.5 Hyperlipidemia, unspecified; D72.829 Elevated white blood cell count, unspecified; E87.6 Hypokalemia; R11.2 Nausea with vomiting, unspecified; F41.9 Anxiety disorder, unspecified

== ENCOUNTER → 2019-12-03 | Outpatient (CLI) | payer MEDICARE ==
[~2019-12-03] MED LIST changes: +ALPR0.5T3 PO; +LIDOCAINE 1% MDV 20ML VIAL As Ordered ONE; +LORA1TAB4 PO; +MORP-69 PO; +ONDA8TAB10 PO; +PROM25TA12 PO; +ZYPR10TA PO
[2019-12-03 15:38] VITALS: BP 104/67
--- NOTE | 2019-12-03 18:37 | REP ---
Procedure: PICC line insertion with [place] The procedure was performed under the direct supervision of Dr. Aldana. The risks and benefits of the procedure were explained to the patient and informed consent was obtained. The right basilic vein was localized using ultrasound guidance. The skin was prepped and draped in a sterile fashion. 2% lidocaine was used as a local anesthetic. Using ultrasound guidance the basilic vein was cannulated and a 0.018 guidewire was inserted and advanced to the SVC using fluoroscopic guidance. The needle was removed and a 4.5 [place] dilator and peel-away sheath was inserted over the guide wire. A 4.5 [place] single lumen catheter was cut to length of 42 cm. The dilator was removed and the catheter was inserted over the guide wire with the tip ending in the SVC. The peel-away sheath was removed and the catheter was flushed with heparinized saline as per Hospital protocol. The catheter was affixed to the skin and a sterile dressing was applied. The patient tolerated the procedure well and there were no immediate complications. 0.2 minutes of fluoro time was utilized for this procedure. Electronically Signed by DOLORES Huerta 12/03/2019 05:47 P Electronically Signed by Addison Aldana MD 12/03/2019 06:25 P
== END ==
LOC: M IRPRO 14:00
PROVIDERS: ATTEND Internal Medicine Medical Oncology
DX: C25.9 Malignant neoplasm of pancreas, unspecified (principal)
CPT/HCPCS: 36573; C1751